=== PATIENT | male | born 1970 ===

== ENCOUNTER 2023-12-10 12:00 | Outpatient (RCR) | payer MEDICAID, SELFPAY | END 2023-12-10 13:50 | disposition home or self-care (01) | LOC: HO.PT 12:00 | PROVIDERS: PCP Family Medicine; Visit Provider Surgery Vascular Surgery | DX: Z89.511 Acquired absence of right leg below knee (principal) | CPT/HCPCS: 97110; 97112; 97116; 97140; 97162 ==